=== PATIENT | male | born 1960 | race Caucasian/White ===

== ENCOUNTER 2019-11-15 07:42 | Inpatient (IN) | payer OTHER ==
[2019-11-15] VITALS (16 sets, daily range): BP systolic 83–127; BP diastolic 55–82
[~2019-11-15] VITALS: Ht 180.3 cm; Wt 53.5 kg
--- NOTE | ~2019-11-15 | EMS ---
[address] [address] EMS Patient Care Report Name: RAKAN GREEN Room #: PRE M.R.#: [id number] Admission: Attend Phys: Discharge: Date of : 58 Report #: [id number] THIS REPORT FOR: //name// Report Transmitted: 11/15/2019 07:25 EMS Care Summary [facility] MED-ACT Incident [id number] @ 11/15/2019 06:58 Incident Location [address] [place] [address] Patient RAKAN GREEN Male, 59 Years 1960 Patient Address [address] [place] [address] Patient History Chronic Obstructive Pulmonary Disease (COPD), Patient Allergies No known allergies, Patient Medications None Reported, Chief Complaint declining oxygen saturations Disposition Transported No Lights/[place] Dispatch Reason Breathing Problem Transported To [facility] Narrative EMS was dispatched for a patient who was short of air. Upon arrival the patient was lying in his bed conscious and breathing. Nursing staff advised the patient was covid positive for two days and had been having lower O2 sats since midnight. EMS noted course lung sounds upon listening. The patient was [address] [address] EMS Patient Care Report Name: RAKAN GREEN Room #: [facility] Gila#: [id number] Admission: Attend Phys: Discharge: Date of : 58 Report #: [id number] placed on a NRB at 15lpm O2. The patient's sats came up to 97% and the patient was able to talk to EMS. EMS loaded the patient on to the cot and placed him in the ambulance. EMS established a 20g IV in the right AC. EMS also started a fluid bolus of NS for hypotension The patient was reassessed and transported to [facility] for further evaluation. Initial Vitals @07:29P: 84,PA Suspected: false @07:10P: 87,R: 14,BP: 81/57,Pain: 0/10,GCS: 14,SpO2: 81,Revised Trauma: 11, @07:21GCS: 15,SpO2: 97, @07:24P: 88,R: 16,BP: 82/57,GCS: 15,SpO2: 91,Revised Trauma: 11, @07:28P: 88,R: 16,BP: 93/60,Pain: 0/10,GCS: 15,SpO2: 94,Revised Trauma: 12,PA Suspected: false @07:36P: 87,R: 16,BP: 103/60,GCS: 15,SpO2: 96,Revised Trauma: 12,PA Suspected: false Assessments @07:04MENTAL:Confused,SKIN:Cold,HEENT:Head/Face: No Abnormalities,Neck/Airway: No Abnormalities,LUNG SOUNDS:General: No Abnormalities,ABDOMEN:General: No Abnormalities,PELVIS//GI:No Abnormalities,EXTREMITIES:Left Arm: No Abnormalities,Right Arm: No Abnormalities,Left Leg: No Abnormalities,Right Leg: No Abnormalities,PULSE:NEURO:No Abnormalities, Impression COVID-19 - Confirmed by testing Procedures @07:04ALS AssessmentResponse: UnchangedSucceeded@07:05Oxygen FlowRate: 15 Device: Non Re-breather Mask (NRB) Response: UnchangedSucceeded@07:25Normal Saline (.9% NaCl) 250cc (20 ga) Site: Antecubital-RightResponse: UnchangedSucceeded Timeline 06:57,Call Received 06:58,Dispatched 06:59,En Route 07:03,On Scene 07:04,At Patient 07:04,ALS Assessment,Response: UnchangedSucceeded, 07:05,Oxygen FlowRate: 15 Device: Non Re-breather Mask (NRB) Response: UnchangedSucceeded, 07:10,BP: 81/57 M,PULSE: 87,RR: 14 R,SPO2: 81 Ox,ETCO2: ,BG: ,PAIN: 0,GCS: 14, 07:21,BP: / M,PULSE: ,RR: R,SPO2: 97 Ox,ETCO2: ,BG: ,PAIN: ,GCS: 15, 07:24,BP: 82/57 M,PULSE: 88,RR: 16 R,SPO2: 91 Ox,ETCO2: ,BG: ,PAIN: ,GCS: 15, 07:25,Normal Saline (.9% NaCl) 250cc 20 ga Site: Antecubital-Right,Response: UnchangedSucceeded, [address] [address] EMS Patient Care Report Name: RAKAN GREEN Room #: PRE MBaldemarRBaldemar#: [id number] Admission: Attend Phys: Discharge: Date of : 58 Report #: [id number] 07:27,Depart Scene 07:28,BP: 93/60 M,PULSE: 88,RR: 16 R,SPO2: 94 Ox,ETCO2: ,BG: ,PAIN: 0,GCS: 15, 07:29,BP: / M,PULSE: 84,RR: R,SPO2: Ox,ETCO2: ,BG: ,PAIN: ,GCS: , 07:36,BP: 103/60 M,PULSE: 87,RR: 16 R,SPO2: 96 Ox,ETCO2: ,BG: ,PAIN: ,GCS: 15, 07:37,At Destination 08:00,Call Closed Disclaimer v1.1 Copyright 2020 [employer] This EMS Care Summary contains data elements from the applicable legal record (which may be displayed differently). It is designed to provide pertinent information for the following purposes: continuity of care, clinical quality, and state data reporting. The complete legal record is available to ED staff and administrators of the receiving hospital in [employer]'s Patient Tracker. All data is provided "as is."
--- NOTE | ~2019-11-15 | EMS ---
[facility] [address] [place] [address] EMS Patient Care Report Name: RAKAN GREEN Room #: 246-P ADM IN M.R.#: [id number] Admission: 11/15/19 Attend Phys: Lon Almanzar Discharge: Date of : 58 Report #: [id number] THIS REPORT FOR: //name// Report Transmitted: 11/16/2019 15:00 EMS Care Summary [facility] MED-ACT Incident [id number] @ 11/15/2019 06:58 Incident Location [address] [place] [address] Patient RAKAN GREEN Male, 59 Years 1960 Patient Address [address] [place] [address] Patient History Chronic Obstructive Pulmonary Disease (COPD), Patient Allergies No known allergies, Patient Medications None Reported, Chief Complaint declining oxygen saturations Disposition Transported No Lights/[place] Dispatch Reason Breathing Problem Transported To [facility] Narrative EMS was dispatched for a patient who was short of air. Upon arrival the patient was lying in his bed conscious and breathing. Nursing staff advised the patient was covid positive for two days and had been having lower O2 sats since midnight. EMS noted course lung sounds upon listening. The patient was [facility] [address] [place] [address] EMS Patient Care Report Name: RAKAN GREEN Room #: 246-P ADM IN M.Estefanía.#: [id number] Admission: 11/15/19 Attend Phys: Lon Will Yohan Discharge: Date of : 58 Report #: [id number] placed on a NRB at 15lpm O2. The patient's sats came up to 97% and the patient was able to talk to EMS. EMS loaded the patient on to the cot and placed him in the ambulance. EMS established a 20g IV in the right AC. EMS also started a fluid bolus of NS for hypotension The patient was reassessed and transported to [facility] for further evaluation. Initial Vitals @07:29P: 84,SD Suspected: false @07:10P: 87,R: 14,BP: 81/57,Pain: 0/10,GCS: 14,SpO2: 81,Revised Trauma: 11, @07:21GCS: 15,SpO2: 97, @07:24P: 88,R: 16,BP: 82/57,GCS: 15,SpO2: 91,Revised Trauma: 11, @07:28P: 88,R: 16,BP: 93/60,Pain: 0/10,GCS: 15,SpO2: 94,Revised Trauma: 12,SD Suspected: false @07:36P: 87,R: 16,BP: 103/60,GCS: 15,SpO2: 96,Revised Trauma: 12,SD Suspected: false Assessments @07:04MENTAL:Confused,SKIN:Cold,HEENT:Head/Face: No Abnormalities,Neck/Airway: No Abnormalities,LUNG SOUNDS:General: No Abnormalities,ABDOMEN:General: No Abnormalities,PELVIS//GI:No Abnormalities,EXTREMITIES:Left Arm: No Abnormalities,Right Arm: No Abnormalities,Left Leg: No Abnormalities,Right Leg: No Abnormalities,PULSE:NEURO:No Abnormalities, Impression COVID-19 - Confirmed by testing Procedures @07:04ALS AssessmentResponse: UnchangedSucceeded@07:05Oxygen FlowRate: 15 Device: Non Re-breather Mask (NRB) Response: UnchangedSucceeded@07:25Normal Saline (.9% NaCl) 250cc (20 ga) Site: Antecubital-RightResponse: UnchangedSucceeded Timeline 06:57,Call Received 06:58,Dispatched 06:59,En Route 07:03,On Scene 07:04,At Patient 07:04,ALS Assessment,Response: UnchangedSucceeded, 07:05,Oxygen FlowRate: 15 Device: Non Re-breather Mask (NRB) Response: UnchangedSucceeded, 07:10,BP: 81/57 M,PULSE: 87,RR: 14 R,SPO2: 81 Ox,ETCO2: ,BG: ,PAIN: 0,GCS: 14, 07:21,BP: / M,PULSE: ,RR: R,SPO2: 97 Ox,ETCO2: ,BG: ,PAIN: ,GCS: 15, 07:24,BP: 82/57 M,PULSE: 88,RR: 16 R,SPO2: 91 Ox,ETCO2: ,BG: ,PAIN: ,GCS: 15, 07:25,Normal Saline (.9% NaCl) 250cc 20 ga Site: Antecubital-Right,Response: UnchangedSucceeded, [address] [address] EMS Patient Care Report Name: RAKAN GREEN Room #: 246-P [facility] IN M.R.#: [id number] Admission: 11/15/19 Attend Phys: Lon Almanzar Discharge: Date of : 58 Report #: [id number] 07:27,Depart Scene 07:28,BP: 93/60 M,PULSE: 88,RR: 16 R,SPO2: 94 Ox,ETCO2: ,BG: ,PAIN: 0,GCS: 15, 07:29,BP: / M,PULSE: 84,RR: R,SPO2: Ox,ETCO2: ,BG: ,PAIN: ,GCS: , 07:36,BP: 103/60 M,PULSE: 87,RR: 16 R,SPO2: 96 Ox,ETCO2: ,BG: ,PAIN: ,GCS: 15, 07:37,At Destination 08:00,Call Closed Disclaimer v1.1 Copyright 2020 [employer] This EMS Care Summary contains data elements from the applicable legal record (which may be displayed differently). It is designed to provide pertinent information for the following purposes: continuity of care, clinical quality, and state data reporting. The complete legal record is available to ED staff and administrators of the receiving hospital in [employer]'s Patient Tracker. All data is provided "as is."
[2019-11-15 08:01] LABS: BE(vivo) -4.9 mmol/L (-2 to +3); HCO3 22.6 mmol/L (22.0-26.0); PCO2 53.6 mmHg (35.0-45.0); PO2 135.4 mmHg (80.0-100.0); pH 7.243 (7.360-7.450); sO2 98.2 % (92.0-98.0)
[2019-11-15 08:12] LABS: ABSOLUTE NEUTROPHILS 9.8 thou/uL (1.4-8.2); BASOPHILS 0.1 % (0.0-2.0); HEMATOCRIT 29.2 % (42.0-52.0); HEMOGLOBIN 9.5 gm/dL (14.0-18.0); LYMPHOCYTES 3.5 % (24.0-44.0); MCH 26.9 pg (26.0-34.0); MCHC 32.4 g/dL (28.0-37.0); MCV 83.1 fL (80.0-100.0); PLATELET COUNT 184 thou/uL (150-400); POLYS 88.4 % (36.0-66.0); RBC 3.52 mil/uL (4.50-6.00); RDW 15.3 % (10.5-14.5)
[2019-11-15 08:17] LABS: CALCIUM 8.6 mg/dL (8.5-10.1); CREATININE 1.7 mg/dL (0.7-1.3); POTASSIUM 3.8 mmol/L (3.5-5.1)
[2019-11-15 08:26] LABS: TROPONIN-I 0.16 ng/mL (<0.06)
--- NOTE | 2019-11-15 08:42 | EKG ---
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
[2019-11-15 09:44] LABS: BE(vivo) -5.6 mmol/L (-2 to +3); HCO3 21.9 mmol/L (22.0-26.0); PCO2 53.2 mmHg (35.0-45.0); PO2 320.5 mmHg (80.0-100.0); pH 7.233 (7.360-7.450); sO2 99.6 % (92.0-98.0)
[2019-11-15] MEDS ORDERED: ATENOLOL 25 MG25 M1 PO (10:02)
[2019-11-15] MEDS ORDERED: REMEDY CALAZIM113 G2 TOP (10:03)
[2019-11-15] MEDS ORDERED: DAPTOMYCIN350 MG IV (10:04)
[2019-11-15] MEDS ORDERED: ENOXAPARIN40 MG/0.1 SUBQ (10:04)
[2019-11-15] MEDS ORDERED: FOLIC ACID1 MG PO (10:05)
[2019-11-15] MEDS ORDERED: GENTAMICIN SULF30 GM TOP (10:06)
[2019-11-15] MEDS ORDERED: INSULIN AS100 UNIT/1 SUBQ (10:07)
[2019-11-15] MEDS ORDERED: LEVEMIR100 UNIT/1 SUBQ (10:08)
[2019-11-15] MEDS ORDERED: MEROPENEM-500 MG/50 IVPB (10:09)
[2019-11-15] MEDS ORDERED: MICONAZOLE5 GM TOP (10:09)
[2019-11-15] MEDS ORDERED: MUPIROCIN1 GM TOP (10:10)
[2019-11-15] MEDS ORDERED: PROAIR HFA8.5 GM INH (10:11)
[2019-11-15] MEDS ORDERED: PROTONIX40 M2 PO (10:11)
[2019-11-15] MEDS ORDERED: BISACODYL10 MG RECTAL (10:12)
[2019-11-15] MEDS ORDERED: DIAZEPAM 10 MG10 M1 PO (10:14)
[2019-11-15] MEDS ORDERED: VOLTAREN100 GM TOP (10:16)
[2019-11-15] MEDS ORDERED: LORCET 5-325 M1 EACH PO (10:17)
[2019-11-15] MEDS ORDERED: OXYCODONE HCL10 MG PO (10:17)
[2019-11-15] MEDS ORDERED: ZOFRAN4 MG PO (10:17)
--- NOTE | 2019-11-15 20:17 | NUR ---
TW HIS BROTHER KLEBER GREEN.
[2019-11-16] VITALS (93 sets, daily range): BP systolic 72–134; BP diastolic 38–67
--- NOTE | 2019-11-16 00:40 | NUR ---
assume care of pt at 1900 on 11/15/19, pt already in restraints but was undersedated. titrated propofol to sedate, vs remained stable after sedation achieved. pt transferred to icu.
[2019-11-16 04:54] LABS: ABSOLUTE NEUTROPHILS 7.8 thou/uL (1.4-8.2); BASOPHILS 0.2 % (0.0-2.0); EOSINOPHILS 2.3 % (0.0-3.0); HEMATOCRIT 23.9 % (42.0-52.0); LYMPHOCYTES 8.9 % (24.0-44.0); MCH 27.5 pg (26.0-34.0); MCHC 33.3 g/dL (28.0-37.0); MCV 82.5 fL (80.0-100.0); MONOCYTES 4.1 % (1.0-8.0); PLATELET COUNT 129 thou/uL (150-400); POLYS 84.5 % (36.0-66.0); RDW 15.1 % (10.5-14.5); WBC 9.2 thou/uL (4.0-11.0)
[2019-11-16 04:54] LABS: HCO3 17.8 mmol/L (22.0-26.0); PCO2 33.3 mmHg (35.0-45.0); PO2 148.5 mmHg (80.0-100.0); pH 7.347 (7.360-7.450); sO2 98.8 % (92.0-98.0)
[2019-11-16 05:07] LABS: FIBRINOGEN 320.3 mg/dL (210-360); INR 1.1; PROTIME 10.8 Seconds (9.3-11.4)
[2019-11-16 05:23] LABS: ALBUMIN 1.4 g/dL (3.4-5.0); CALCIUM 7.7 mg/dL (8.5-10.1); CREATININE 1.7 mg/dL (0.7-1.3); TOTAL BILIRUBIN 0.3 mg/dL (0.2-1.0); TOTAL PROTEIN 4.8 g/dL (6.4-8.2)
--- NOTE | 2019-11-16 05:27 | NUR ---
ASSUMED CARE OF PATIENT FROM ER. ADMISSION COMPLETE. SPOKE WITH DAUGHTER AT LENGTH ABOUT POC. SHE WILL BRING DPOA PAPERWORK AND ADVANCED DIRECTIVE. GIVEN UNIT POLICIES AND PATIENT CODE. EDUCATED ON POC CARE. EXTENSIVE WOUNDS, PICTURES TAKEN. LIGHTLY SEDATED. POC GOALS ESTABLISHED, WILL CONTINUE TO MONITOR.
--- NOTE | 2019-11-16 09:15 | NUR ---
chart review. radha spoke with liaison with [facility] and tam was there for LTAC, iv abx and wound care. pt is currently intubated, unable to visit with him. paraplegia, daughter is supposed to be bring up dpoa paper work, noted in progress note.
--- NOTE | 2019-11-16 09:37 | NUR ---
HOSPITALIST ROUNDED AND STATED THAT HE SPOKE WITH THE PT'S DAUGHTER AND THE PT IS NOW COMFORT CARE, DNR. WILL NOTIFY HOSPICE PLAN ADMINISTRATOR TO FACE TIME WITH PT. IS ENTERING NEW ORDERS.
--- NOTE | 2019-11-16 10:03 | NUR ---
Nutrition: RD received consult related to malnutrition, extensive wounds. COVID +. Initial risk for poor intake, weight loss, wounds. PMH: DM, COPD, quadriplegia, diverting colostomy, pancreatitis, ischial wound. Pt has just been made DNR and comfort care. RD is deferring full assessment.
--- NOTE | 2019-11-16 11:44 | NUR ---
RN CALLED PT'S DAUGHTER AND SET UP FACE TIME VIA IPAD. PT'S DAUGHTER HAD EXTENDED FAMILY IN PLACE AND PT'S BROTHER, MOTHER, DAUGHTER AND EXTENDED FAMILY WAS ABLE TO TALK/SEE PT VIA FACE TIME.
--- NOTE | 2019-11-16 14:55 | NUR ---
PT EXTUBATED AT 1340 BY RT WITH RN AT BEDSIDE. PT'S DAUGHTER AND FAMILY REMAINED ON FACETIME. MONITOR WAS TURNED AWAY WHEN ET TUBE WAS REMOVED AND THEN RETURNED TO FACING PT AFTER IT WAS REMOVED. FROM 5640-4822 PT HR WAS IN THE 80'S AND SPO2 WAS UPPER 80'S. RN WENT INTO ROOM AT 1445 TO SPEAK TO DAUGHTER VIA FACE TIME AND PT BEGAN TO AROUSE. PT WAS MOVING RIGHT ARM TOUCHING HIS HEAD AND FACE AND BEGAN SAYING "HEY". RN ASKED PT IF HE WAS OKAY AND HE STATED "I CAN FEEL MYSELF, I AM ALIVE, I CAN FEEL MY STOMACH, I AM ALIVE." PT'S FAMILY THEN ASKED HIM TO LOOK AT THE IPAD SCREEN AND PT DID. PT IS NOW IN ROOM TALKING WITH FAMILY VIA IPAD. PT STILL HAS MORPHINE GTT ORDERED RUNNING. VSS AT THIS TIME SEE VITALS.
--- NOTE | 2019-11-16 20:44 | NUR ---
ASSUMED CARE AT 1900. PT BREATHING WITH RR OF 4-6 BREATHS PER MINUTE, 02 SATS UPPER 90'S ON 2L, SOFT BP'S, HR IN 60'S SR. OPENED HIS EYES MADE A FEW UNDISCERNABLE SOUNDS, MOVED RIGHT HAND. NO NOTICEABLE MOTTLING. SPOKE WITH DAUGHTER VIA IPAD, WILL KEEP UPDATED ON ANY CHANGES TO PT'S CONDITION.
[2019-11-17] VITALS (29 sets, daily range): BP systolic 69–83; BP diastolic 40–48
--- NOTE | 2019-11-17 08:30 | NUR ---
ASSUMMED CARE AT 0730 FROM NIGHT NURSE.
--- NOTE | 2019-11-17 13:16 | NUR ---
SPOKE WITH PATIENT'S DAUGHTER, GOPAL AND UPDATED HER TO HER FATHER'S STATUS. REASSURANCE GIVEN. PATIENT'S STATUS UNCHANGED. O2 SAT 100% ON 1L/NC.
--- NOTE | 2019-11-17 17:00 | NUR ---
PATIENT REMAINS STABLE WITH O2 SAT 100% ON 1L. AWAITING BED ON MED SURG FOR TRANSFER
[2019-11-18] VITALS (10 sets, daily range): BP systolic 64–85; BP diastolic 30–43
--- NOTE | 2019-11-18 12:54 | NUR ---
ASSUMED CARE AT 0700. ASSESSED THE PATIENT. SPOKE WITH FAMILY AT LENGTH AND UPDATED AND EDUCATED THEM AND THE PATIENT ON THE PLAN OF CARE. MORPHINE DRIP DC'D. FENTANYL PATCH APPLIED. HYPOTHERMIC. PATIENT HAS COMFORT CARE ORDERS. PATIENT HAS ASYMPTOMATIC BRADYCARDIA AND HYPOTENSION. PATIENT TRANSFERRED TO ROOM 354.
--- NOTE | 2019-11-18 15:05 | NUR ---
1420 PT TRANSFERRED FROM ICU TO ROOM 354, PT ALERT TO SELF. NONVERBAL, UNABLE TO FOLLOW COMMANDS. UNABLE TO ASSESS PAIN. PT IS ON COMFORT CARE. VITALS SIGNS TAKEN. SUPAPUBIC CATHETER AND COLOSTOMY IN PLACE.WARM BLANKETS PLACED ON PT, P SEEMS COMFORTABLE. FALL PRECAUTION PLACE. WILL CONTINUE TO MONITOR.
--- NOTE | 2019-11-19 07:45 | NUR ---
Comfort care provided. Pt. stop breathing , no pulse and no BP appreciated around 0515. RN and BATTERY TESTER AND REPAIRER in the room with pt. when he took his last breath . Camilo Diggs,REBEKAH and housekeeper nanny notified. Daughter Sarah notified and emotional support given. Security notified of pt.'s passing. Daughter will call the unit and provide the home as soon as she's able. Day RN notified consults.
--- NOTE | 2019-11-19 11:15 | NUR ---
SW reviewed chart and spoke with nursing. Pt was transferred to 3 from ICU on comfort care measures. Pt this morning. SW notified [facility] liaison. No additional SW needs identified at this time, but is available to assist should needs arise.
--- NOTE | 2019-11-20 08:52 | HC ---
[facility] [place] [address] CONSULTATION Name: RAKAN GREEN Room #: 354-[facility] IN M.R.#: [id number] Admission: 11/15/19 Attend Phys: Lon Almanzar Discharge: 11/19/19 Date of : 58 Report #: [id number] THIS REPORT FOR: cc: KYLAH - Family physician unknown KYLAH - Family physician unknown Bear Yi MD ~ CC: Dayron MONTERO unknown Lon Banks DATE OF SERVICE: 11/15/2019 WOUND CARE CONSULTATION PERSONAL PHYSICIAN: [place]. CHIEF COMPLAINT: Multiple decubitus ulcers. HISTORY OF PRESENT ILLNESS: This is a 59-year-old white male who was transferred from [facility] for evaluation of increasing respiratory distress in light of COVID-19 positive testing. We have been following the patient at [facility] for bilateral ischial decubitus ulcers as well as severe malnutrition. The patient now has been intubated in the Emergency Department and sedated on the ventilator. Nursing staff denies any other associated wounds besides the stage 4 decubitus ulcers of the ischial tuberosities. PAST MEDICAL HISTORY: Significant for diabetes, chronic pancreatitis and paraplegia as well as severe malnutrition. CURRENT MEDICATIONS: Multiple, I reviewed the patient's medication list. DRUG ALLERGIES: None. SOCIAL HISTORY: The patient has a longstanding history of smoking and heavy alcohol use. FAMILY HISTORY, REVIEW OF SYSTEMS: Unable to obtain because the patient is intubated and sedated. PHYSICAL EXAMINATION: VITAL SIGNS: The patient is afebrile, pulse is 70, respiratory rate 20, BP 96/57. GENERAL: This is an intubated and sedated white male who appears chronically ill. [facility] [address] [place] [address] CONSULTATION Name: RAKAN GREEN Room #: 354-[facility] IN M.R.#: [id number] Admission: 11/15/19 Attend Phys: Lon Almanzar Discharge: 11/19/19 Date of : 58 Report #: [id number] HEENT: Normocephalic, atraumatic. Mucous membranes are dry. Oral endotracheal tube is in place. NECK: Supple and nontender. LUNGS: Diminished breath sounds ____ rhonchi heard throughout. HEART: Regular. ABDOMEN: Cachectic, soft, nontender. GENITOURINARY: Evaluation of the ischial region revealed stage 4 decubitus ulcers with exposed bone. There is also significant fungal excoriation around the genitalia and groin region. EXTREMITIES: The patient has no movement of lower extremities. NEUROLOGIC: The patient is intubated and sedated on the ventilator. LABORATORY DATA: White count 11.0, hemoglobin 9.5. BUN 46, creatinine 1.7. Albumin 1.4. C-reactive protein 173.9. IMPRESSION: 1. Chronic bilateral stage 4 ischial tuberosity decubitus ulcers. 2. 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 3. Respiratory failure with COVID-19 positive testing. 4. Hypertension. 5. History of heavy alcohol and tobacco use. 6. Severe protein-calorie malnutrition with albumin of 1.4. 7. History of paraplegia with generalized debility. PLAN: We will start Dakin's moist dressings b.i.d. to the ischial ulcers put the patient on low air loss mattress, having turned every 2 hours. We will start nystatin cream to the fungal region twice daily and p.r.n. Pulmonary is managing the patient's respiratory failure. Infectious Disease has been consulted as well. We will continue all other current medications at this time. At this time, the patient's prognosis appears to be poor. <ELECTRONICALLY SIGNED> By: Bear Yi MD 11/20/19 [id number] Bear Yi MD /nt
== END 2019-11-19 10:04 | DRG 871 ==
LOC: ER 07:42 → EROBS 09:33 → ICU 09:33 → 3W 11-18 14:08
PROVIDERS: Emergency Medicine; Internal Medicine Pulmonary Disease; Nurse Practitioner; Specialist; ADMIT Hospitalist; ATTEND Hospitalist
PROC: 02HV33Z Insertion of Infusion Device into Superior Vena Cava, Percutaneous Approach (ICD-10-PCS; principal; 2019-11-15)
PROC: B548ZZA Ultrasonography of Superior Vena Cava, Guidance (ICD-10-PCS; principal; 2019-11-15)
PROC: 5A1935Z Respiratory Ventilation, Less than 24 Consecutive Hours (ICD-10-PCS; principal; 2019-11-15)
PROC: 0BH17EZ Insertion of Endotracheal Airway into Trachea, Via Natural or Artificial Opening (ICD-10-PCS; principal; 2019-11-15)
DX: A41.89 Other specified sepsis (principal); L89.154 Pressure ulcer of sacral region, stage 4; U07.1 COVID-19; J96.01 Acute respiratory failure with hypoxia; R65.21 Severe sepsis with septic shock; J96.02 Acute respiratory failure with hypercapnia; G82.20 Paraplegia, unspecified; K86.1 Other chronic pancreatitis; N17.9 Acute kidney failure, unspecified; E44.0 Moderate protein-calorie malnutrition; Z68.1 Body mass index [BMI] 19.9 or less, adult; M86.8X8 Other osteomyelitis, other site; E87.0 Hyperosmolality and hypernatremia; G93.40 Encephalopathy, unspecified; Z79.4 Long term (current) use of insulin; Z79.899 Other long term (current) drug therapy; E78.5 Hyperlipidemia, unspecified; I12.9 Hypertensive chronic kidney disease with stage 1 through stage 4 chronic kidney disease, or unspecified chronic kidney disease; E11.22 Type 2 diabetes mellitus with diabetic chronic kidney disease; N18.9 Chronic kidney disease, unspecified; R15.9 Full incontinence of feces; N31.9 Neuromuscular dysfunction of bladder, unspecified; F10.11 Alcohol abuse, in remission; S30.815A Abrasion of unspecified external genital organs, male, initial encounter; X58.XXXA Exposure to other specified factors, initial encounter; Z66 Do not resuscitate; Z51.5 Encounter for palliative care; Y93.89 Activity, other specified; Y92.89 Other specified places as the place of occurrence of the external cause; Y99.8 Other external cause status
CPT/HCPCS: 10078; 10879